=== PATIENT | male | born 1940 | race Caucasian/White ===

== ENCOUNTER 2017-03-18 22:44 | Inpatient (IN) | payer MEDICARE ==
[~2017-03-18 22:44] MED LIST: ACELLULAR PERTUSSIS VACCINE IM; ADVAIR 1001 DISK W/D; ADVAIR 2501 DISK W/D; ALBUTEROL2.5 MG/3 M NEB; ASPIR 8181 M1 PO; ASPIR-TRIN325 MG PO; DIPHTHERIA TOXOID IM; HYDROCHLOROTH12.5 M1; HYDROCHLOROTH12.5 MG; LASIX40 M1 PO; MEDROL4 M2 PO; MUCINEX1200 MG PO; OMEPRAZOLE20 MG; PROAIR; PROVENTIL17 GM; SPIRIVA18 MCG; SYMBICORT 160-1 PUFF INH; TETANUS TOXOID IM; VYTORIN 10/20 T1 TAB; ZEBETA5 M2 PO; ZEBETA5 MG; ZESTRIL10 M3 PO; ZESTRIL10 MG; ZOCOR40 M1 PO; ZOCOR40 MG; [UNRECOGNIZED DRUG - CODE] PO
[2017-03-18 23:04] LABS: ABG CO2 ARTERIAL 32 mmol/L (21-27); ARTERIAL BLD GAS O2 SATURATION 97 % (95-98); ARTERIAL BLOOD GAS PCO2 57 mmHg (32-45); ARTERIAL PO2 87 mmHg (70-100); BICARBONATE 30 mmol/L (21-28); BLOOD GAS BASE EXCESS 4 mM/L (-/+3); PH 7.34 Units (7.35-7.45)
[2017-03-18 23:20] LABS: BASO % 0.4 % (0-2); EOS % 0.9 % (0-7); EOSINOPHIL ABSOLUTE COUNT 0.1 tho/cmm (0.0-0.7); HCT-HEMATOCRIT 37.5 % (36.0-53.5); HGB-HEMOGLOBIN 11.8 gm/dl (13.5-17.0); IMMATURE GRANULOCYTES ABSOLUTE 0.04 tho/cmm (0-0.03); IMMATURE GRANULOCYTES PERCENT 0.5 % (0-0.3); LYMPH % 18.2 % (20-45); LYMPH ABSOLUTE COUNT 1.5 tho/cmm (0.8-4.5); MCHC MEAN CORPUSCULAR HGB CONC 31.5 % (32.0-36.0); MCV (MEAN CELL VOLUME) 98.4 fl (82.0-96.0); MEAN PLATELET VOLUME 10.5 cmc (9.4-12.4); MONO % 11.8 % (0-12); NEUTROPHIL ABSOLUTE COUNT 5.6 tho/cmm (1.6-8.0); NEUTROPHIL-AUTOMATED 5.6 tho/cmm (1.6-8.0); NEUTROPHILS % 68.2 % (40-80); PLATELET COUNT 156 tho/cmm (150-450); RED BLOOD COUNT 3.81 mil/cmm (4.40-5.70); RED CELL DISTRIBUTION WIDTH 14.4 % (12.4-16.4); WHITE BLOOD COUNT 8.2 tho/cmm (4.0-10.0)
[2017-03-18 23:25] LABS: PROTHROMBIN TIME 12.1 SECONDS (9.0-13.6)
[2017-03-18 23:36] LABS: ANION GAP 8 mmol/L (0-20); BLOOD UREA NITROGEN 25 mg/dl (6-24); CALCIUM 7.9 mg/dl (8.5-10.5); CARBON DIOXIDE-VENOUS 31 mmol/L (22-32); CHLORIDE 110 mmol/l (96-110); CREATININE 1.48 mg/dl (0.60-1.30); GLUCOSE 105 mg/dL (70-110); POTASSIUM 5.2 mmol/L (3.7-5.1); SODIUM 144 mmol/L (135-145); eGFR VALUE FOR BLACK 53 mL/Min
[2017-03-18] MEDS ORDERED: PRINIVIL5 M1 PO (23:43)
[2017-03-18] MEDS ORDERED: MAGNESIUM250 M2 PO (23:44)
[2017-03-18] MEDS ORDERED: NASONEX17 G1 (23:45)
[2017-03-18] MEDS ORDERED: SPIRIVA18 MC1 INH (23:45)
[2017-03-18] MEDS ORDERED: THEOPHYLLINE400 MG PO (23:45)
[2017-03-19 01:26] LABS: ALB/GLOB RATIO 0.8 (0.8-2.0); ALBUMIN 3.2 g/dl (3.5-5.0); ALKALINE PHOSPHATASE 81 U/L (33-138); ALT/SGPT 23 U/L (12-78); ANION GAP 12 mmol/L (0-20); AST/SGOT 27 U/L (10-40); BILIRUBIN,TOTAL 0.2 mg/dl (0.0-1.5); C-REACTIVE PROTEIN 1.4 mg/dl (0-0.9); CALCIUM 7.8 mg/dl (8.5-10.5); CARBON DIOXIDE-VENOUS 29 mmol/L (22-32); CHLORIDE 111 mmol/l (96-110); CREATININE 1.47 mg/dl (0.60-1.30); GLUCOSE 103 mg/dL (70-110); PHOSPHOROUS 2.9 mg/dl (2.5-4.9); POTASSIUM 5.3 mmol/L (3.7-5.1); SODIUM 147 mmol/L (135-145); THEOPHYLLINE 4.6 ug/ml (10-20); eGFR VALUE FOR BLACK 53 mL/Min
[2017-03-19 01:44] LABS: BLOOD UREA NITROGEN 24 mg/dl (6-24)
[2017-03-19 01:54] LABS: PROCALCITONIN <0.05 ng/ml (0.05-0.09)
[2017-03-19 04:26] LABS: ABG CO2 ARTERIAL 29 mmol/L (21-27); ARTERIAL BLD GAS O2 SATURATION 97 % (95-98); ARTERIAL BLOOD GAS PCO2 53 mmHg (32-45); ARTERIAL PO2 85 mmHg (70-100); BICARBONATE 27 mmol/L (21-28); BLOOD GAS BASE EXCESS 1 mM/L (-/+3); PH 7.34 Units (7.35-7.45)
[2017-03-19 06:12] LABS: BASO % 0.2 % (0-2); HCT-HEMATOCRIT 37.1 % (36.0-53.5); HGB-HEMOGLOBIN 11.4 gm/dl (13.5-17.0); IMMATURE GRANULOCYTES ABSOLUTE 0.07 tho/cmm (0-0.03); IMMATURE GRANULOCYTES PERCENT 0.8 % (0-0.3); LYMPH % 3.9 % (20-45); LYMPH ABSOLUTE COUNT 0.3 tho/cmm (0.8-4.5); MCH (MEAN CORPUSCULAR HGB) 30.2 pg (28.0-32.0); MCHC MEAN CORPUSCULAR HGB CONC 30.7 % (32.0-36.0); MCV (MEAN CELL VOLUME) 98.4 fl (82.0-96.0); MEAN PLATELET VOLUME 10.3 cmc (9.4-12.4); MONO % 1.3 % (0-12); MONOCYTE ABSOLUTE COUNT 0.1 tho/cmm (0.0-1.2); NEUTROPHIL ABSOLUTE COUNT 7.8 tho/cmm (1.6-8.0); NEUTROPHIL-AUTOMATED 7.8 tho/cmm (1.6-8.0); NEUTROPHILS % 93.8 % (40-80); PLATELET COUNT 164 tho/cmm (150-450); RED BLOOD COUNT 3.77 mil/cmm (4.40-5.70); RED CELL DISTRIBUTION WIDTH 14.3 % (12.4-16.4); WHITE BLOOD COUNT 8.3 tho/cmm (4.0-10.0)
[2017-03-19 06:22] LABS: ANION GAP 11 mmol/L (0-20); BLOOD UREA NITROGEN 24 mg/dl (6-24); CALCIUM 8.2 mg/dl (8.5-10.5); CARBON DIOXIDE-VENOUS 30 mmol/L (22-32); CHLORIDE 111 mmol/l (96-110); CREATININE 1.34 mg/dl (0.60-1.30); GLUCOSE 146 mg/dL (70-110); POTASSIUM 5.2 mmol/L (3.7-5.1); SODIUM 147 mmol/L (135-145); eGFR VALUE FOR BLACK 60 mL/Min
[2017-03-20 07:05] LABS: ANION GAP 11 mmol/L (0-20); BLOOD UREA NITROGEN 34 mg/dl (6-24); CALCIUM 8.9 mg/dl (8.5-10.5); CARBON DIOXIDE-VENOUS 30 mmol/L (22-32); CHLORIDE 106 mmol/l (96-110); CREATININE 1.37 mg/dl (0.60-1.30); GLUCOSE 125 mg/dL (70-110); POTASSIUM 4.7 mmol/L (3.7-5.1); SODIUM 142 mmol/L (135-145); eGFR VALUE FOR BLACK 58 mL/Min
[2017-03-21 03:35] LABS: URINE APPEARANCE CLEAR; URINE BILIRUBIN NEGATIVE (NEG); URINE BLOOD NEGATIVE (NEG); URINE COLOR YELLOW; URINE GLUCOSE (UA) NEGATIVE (NEG); URINE KETONE NEGATIVE (NEG); URINE LEUKOCYTE ESTERASE NEGATIVE (NEG); URINE NITRITE NEGATIVE (NEG); URINE PROTEIN NEGATIVE (NEG); URINE SPECIFIC GRAVITY 1.015 (1.003-1.030)
[2017-03-21 05:16] LABS: URINE EPITHELIAL CELLS 0 /[HPF] (0-10); URINE RBC 0 /[HPF] (0-5); URINE WBC 0 /[HPF] (0-5)
[2017-03-21 06:26] LABS: ANION GAP 10 mmol/L (0-20); BLOOD UREA NITROGEN 44 mg/dl (6-24); CALCIUM 8.9 mg/dl (8.5-10.5); CARBON DIOXIDE-VENOUS 32 mmol/L (22-32); CHLORIDE 104 mmol/l (96-110); POTASSIUM 4.2 mmol/L (3.7-5.1); SODIUM 142 mmol/L (135-145); eGFR VALUE FOR BLACK 52 mL/Min
[2017-03-21 06:32] LABS: GLUCOSE 189 mg/dL (70-110)
[2017-03-21 08:57] LABS: ABG CO2 ARTERIAL 30 mmol/L (21-27); ARTERIAL BLD GAS O2 SATURATION 98 % (95-98); ARTERIAL BLOOD GAS PCO2 54 mmHg (32-45); ARTERIAL PO2 119 mmHg (70-100); BICARBONATE 28 mmol/L (21-28); BLOOD GAS BASE EXCESS 2 mM/L (-/+3); PH 7.34 Units (7.35-7.45)
[2017-03-22 05:35] LABS: HGB-HEMOGLOBIN 11.9 gm/dl (13.5-17.0); PLATELET COUNT 191 tho/cmm (150-450)
[2017-03-22 05:51] LABS: ANION GAP 9 mmol/L (0-20); BLOOD UREA NITROGEN 46 mg/dl (6-24); CALCIUM 8.8 mg/dl (8.5-10.5); CARBON DIOXIDE-VENOUS 35 mmol/L (22-32); CHLORIDE 101 mmol/l (96-110); CREATININE 1.47 mg/dl (0.60-1.30); GLUCOSE 129 mg/dL (70-110); SODIUM 141 mmol/L (135-145); eGFR VALUE FOR BLACK 53 mL/Min
[2017-03-22] MEDS ORDERED: LEVAQUIN750 M1 PO (12:34)
[2017-03-22] MEDS ORDERED: NICODERM CQ1 EAC2 TD (12:34)
[2017-03-22] MEDS ORDERED: MUCINEX600 M1 PO (12:35)
[2017-03-22] MEDS ORDERED: BROVANA15 MCG/22 INH ×2 (16:35→16:40)
[2017-03-22] MEDS ORDERED: IPRAT-ALBUT 0.5-3 ML AERO NEB ×2 (16:36→16:37)
[2017-03-22] MEDS ORDERED: PREDNISONE10 M1 PO (16:49)
[2017-03-22] MEDS ORDERED: PULMICORT0.5 MG/22 AERO NEB (17:11)
[2017-05-16] MEDS ORDERED: MAGNESIUM OXID500 M1 PO (15:38)
[2017-05-16] MEDS ORDERED: DEMADEX20 M1 PO (15:40)
[2017-05-21] MEDS ORDERED: OXYCODONE20 MG/1 M3 PO (13:01)
[2017-05-21] MEDS ORDERED: PREDNISONE10 M1 PO (13:02)
[2017-05-22] MEDS ORDERED: LORAZEPAM I2 MG/1 ML PO (15:07)
[2017-06-18] MEDS ORDERED: ALBUTEROL2.5 MG/3 M NEB (14:57)
[2017-06-18] MEDS ORDERED: HALOPERIDOL1 M1 PO (15:00)
[2017-06-18] MEDS ORDERED: PRINIVIL5 M1 PO (15:00)
[2017-06-18] MEDS ORDERED: COMPAZINE10 MG PO (15:00)
[2017-06-18] MEDS ORDERED: NASONEX17 G1 (15:01)
[2017-06-18] MEDS ORDERED: OXYCODONE20 MG/1 M3 PO/SL (15:03)
[2017-06-18] MEDS ORDERED: THEOPHYLLINE400 MG PO (15:03)
[2017-06-18] MEDS ORDERED: PREDNISONE10 M1 PO (15:03)
[2017-06-18] MEDS ORDERED: NORCO 5-325 TA1 EACH PO (17:07)
== END 2017-03-22 17:45 | disposition home health service (06) | DRG 190 ==
LOC: EDMED 22:44 → EMR2 03-19 00:59 → CCU 03-19 02:00 → PCUA 03-19 19:41
PROVIDERS: Emergency Medicine; Family Medicine; Internal Medicine Pulmonary Disease; ADMIT Internal Medicine
DX: J44.0 Chronic obstructive pulmonary disease with (acute) lower respiratory infection (principal); J96.22 Acute and chronic respiratory failure with hypercapnia; J96.21 Acute and chronic respiratory failure with hypoxia; J18.9 Pneumonia, unspecified organism; N17.9 Acute kidney failure, unspecified; I13.0 Hypertensive heart and chronic kidney disease with heart failure and stage 1 through stage 4 chronic kidney disease, or unspecified chronic kidney disease; E87.0 Hyperosmolality and hypernatremia; I50.32 Chronic diastolic (congestive) heart failure; Z99.81 Dependence on supplemental oxygen; J44.1 Chronic obstructive pulmonary disease with (acute) exacerbation; M19.90 Unspecified osteoarthritis, unspecified site; Z95.1 Presence of aortocoronary bypass graft; Z95.0 Presence of cardiac pacemaker; F17.210 Nicotine dependence, cigarettes, uncomplicated; E78.5 Hyperlipidemia, unspecified; I25.10 Atherosclerotic heart disease of native coronary artery without angina pectoris; K21.9 Gastro-esophageal reflux disease without esophagitis; Z79.82 Long term (current) use of aspirin; I73.9 Peripheral vascular disease, unspecified; Z87.11 Personal history of peptic ulcer disease; I45.10 Unspecified right bundle-branch block; N18.3 Chronic kidney disease, stage 3 (moderate); D64.9 Anemia, unspecified
CPT/HCPCS: J1650; J1940; J1956; J2270; J2930; J7030; J7512

== ENCOUNTER 2017-04-21 16:21 | Inpatient (IN) | payer MEDICARE ==
[~2017-04-21 16:21] MED LIST changes: +BROVANA15 MCG/22 INH; +IPRAT-ALBUT 0.5-3 ML AERO NEB; +LEVAQUIN750 M1 PO; +MAGNESIUM250 M2 PO; +MUCINEX600 M1 PO; +NASONEX17 G1; +NICODERM CQ1 EAC2 TD; +PREDNISONE10 M1 PO; +PRINIVIL5 M1 PO; +PULMICORT0.5 MG/22 AERO NEB; +SPIRIVA18 MC1 INH; +THEOPHYLLINE400 MG PO
[2017-04-21 16:50] LABS: BASO % 0.1 % (0-2); HCT-HEMATOCRIT 36.6 % (36.0-53.5); HGB-HEMOGLOBIN 11.3 gm/dl (13.5-17.0); IMMATURE GRANULOCYTES ABSOLUTE 0.17 tho/cmm (0-0.03); IMMATURE GRANULOCYTES PERCENT 1.5 % (0-0.3); LYMPH % 8.4 % (20-45); LYMPH ABSOLUTE COUNT 0.9 tho/cmm (0.8-4.5); MCH (MEAN CORPUSCULAR HGB) 30.5 pg (28.0-32.0); MCHC MEAN CORPUSCULAR HGB CONC 30.9 % (32.0-36.0); MCV (MEAN CELL VOLUME) 98.7 fl (82.0-96.0); MEAN PLATELET VOLUME 10.4 cmc (9.4-12.4); MONO % 1.5 % (0-12); MONOCYTE ABSOLUTE COUNT 0.2 tho/cmm (0.0-1.2); NEUTROPHIL ABSOLUTE COUNT 9.8 tho/cmm (1.6-8.0); NEUTROPHIL-AUTOMATED 9.8 tho/cmm (1.6-8.0); NEUTROPHILS % 88.5 % (40-80); PLATELET COUNT 151 tho/cmm (150-450); RED BLOOD COUNT 3.71 mil/cmm (4.40-5.70); RED CELL DISTRIBUTION WIDTH 14.6 % (12.4-16.4); WHITE BLOOD COUNT 11.1 tho/cmm (4.0-10.0)
[2017-04-21 17:05] LABS: ANION GAP 12 mmol/L (0-20); BLOOD UREA NITROGEN 24 mg/dl (6-24); CALCIUM 9.2 mg/dl (8.5-10.5); CARBON DIOXIDE-VENOUS 30 mmol/L (22-32); CHLORIDE 110 mmol/l (96-110); GLUCOSE 121 mg/dL (70-110); POTASSIUM 4.5 mmol/L (3.7-5.1); SODIUM 147 mmol/L (135-145); eGFR VALUE FOR BLACK 85 mL/Min
[2017-04-21 17:37] LABS: ABG CO2 ARTERIAL 31 mmol/L (21-27); ARTERIAL BLD GAS O2 SATURATION 93 % (95-98); ARTERIAL BLOOD GAS PCO2 50 mmHg (32-45); ARTERIAL PO2 65 mmHg (70-100); BICARBONATE 29 mmol/L (21-28); BLOOD GAS BASE EXCESS 4 mM/L (-/+3); PH 7.39 Units (7.35-7.45)
[2017-04-22 05:33] LABS: BASO % 0.1 % (0-2); HCT-HEMATOCRIT 35.7 % (36.0-53.5); HGB-HEMOGLOBIN 11.1 gm/dl (13.5-17.0); IMMATURE GRANULOCYTES ABSOLUTE 0.16 tho/cmm (0-0.03); IMMATURE GRANULOCYTES PERCENT 1.6 % (0-0.3); LYMPH ABSOLUTE COUNT 0.4 tho/cmm (0.8-4.5); MCH (MEAN CORPUSCULAR HGB) 30.3 pg (28.0-32.0); MCHC MEAN CORPUSCULAR HGB CONC 31.1 % (32.0-36.0); MCV (MEAN CELL VOLUME) 97.5 fl (82.0-96.0); MONO % 6.1 % (0-12); MONOCYTE ABSOLUTE COUNT 0.6 tho/cmm (0.0-1.2); NEUTROPHIL ABSOLUTE COUNT 8.9 tho/cmm (1.6-8.0); NEUTROPHIL-AUTOMATED 8.9 tho/cmm (1.6-8.0); NEUTROPHILS % 88.2 % (40-80); PLATELET COUNT 153 tho/cmm (150-450); RED BLOOD COUNT 3.66 mil/cmm (4.40-5.70); RED CELL DISTRIBUTION WIDTH 14.4 % (12.4-16.4); WHITE BLOOD COUNT 10.1 tho/cmm (4.0-10.0)
[2017-04-22 05:48] LABS: ALB/GLOB RATIO 0.9 (0.8-2.0); ALKALINE PHOSPHATASE 62 U/L (33-138); ALT/SGPT 25 U/L (12-78); BILIRUBIN,TOTAL 0.2 mg/dl (0.0-1.5); BLOOD UREA NITROGEN 33 mg/dl (6-24); CARBON DIOXIDE-VENOUS 33 mmol/L (22-32); CHLORIDE 104 mmol/l (96-110); SODIUM 143 mmol/L (135-145)
[2017-04-22 05:50] LABS: ANION GAP 10 mmol/L (0-20); AST/SGOT 26 U/L (10-40); CREATININE 1.32 mg/dl (0.60-1.30); GLUCOSE 189 mg/dL (70-110); POTASSIUM 4.3 mmol/L (3.7-5.1); eGFR VALUE FOR BLACK 61 mL/Min
[2017-04-22 15:11] LABS: C-REACTIVE PROTEIN <0.3 mg/dl (0-0.9)
[2017-04-22 15:22] LABS: PROCALCITONIN 0.11 ng/ml (0.05-0.09)
[2017-04-22 15:29] LABS: THEOPHYLLINE 10.2 ug/ml (10-20)
[2017-04-22 15:32] LABS: TSH-THYROID STIMULATING HORM. 0.27 uIU/ml (0.40-3.80)
[2017-04-23 05:38] LABS: BASO % 0.1 % (0-2); HCT-HEMATOCRIT 38.4 % (36.0-53.5); HGB-HEMOGLOBIN 12.2 gm/dl (13.5-17.0); IMMATURE GRANULOCYTES ABSOLUTE 0.18 tho/cmm (0-0.03); IMMATURE GRANULOCYTES PERCENT 1.6 % (0-0.3); LYMPH % 4.1 % (20-45); LYMPH ABSOLUTE COUNT 0.5 tho/cmm (0.8-4.5); MCH (MEAN CORPUSCULAR HGB) 30.6 pg (28.0-32.0); MCHC MEAN CORPUSCULAR HGB CONC 31.8 % (32.0-36.0); MCV (MEAN CELL VOLUME) 96.2 fl (82.0-96.0); MEAN PLATELET VOLUME 10.7 cmc (9.4-12.4); MONO % 3.9 % (0-12); MONOCYTE ABSOLUTE COUNT 0.4 tho/cmm (0.0-1.2); NEUTROPHIL ABSOLUTE COUNT 10.2 tho/cmm (1.6-8.0); NEUTROPHIL-AUTOMATED 10.2 tho/cmm (1.6-8.0); NEUTROPHILS % 90.3 % (40-80); PLATELET COUNT 156 tho/cmm (150-450); RED BLOOD COUNT 3.99 mil/cmm (4.40-5.70); RED CELL DISTRIBUTION WIDTH 14.1 % (12.4-16.4); WHITE BLOOD COUNT 11.3 tho/cmm (4.0-10.0)
[2017-04-23 05:55] LABS: ANION GAP 10 mmol/L (0-20); BLOOD UREA NITROGEN 43 mg/dl (6-24); CALCIUM 9.1 mg/dl (8.5-10.5); CARBON DIOXIDE-VENOUS 35 mmol/L (22-32); CHLORIDE 101 mmol/l (96-110); CREATININE 1.27 mg/dl (0.60-1.30); GLUCOSE 126 mg/dL (70-110); MAGNESIUM 2.2 mg/dl (1.8-2.6); SODIUM 142 mmol/L (135-145); eGFR VALUE FOR BLACK 64 mL/Min
[2017-04-24 05:49] LABS: BASO % 0.2 % (0-2); HCT-HEMATOCRIT 38.8 % (36.0-53.5); HGB-HEMOGLOBIN 12.5 gm/dl (13.5-17.0); IMMATURE GRANULOCYTES ABSOLUTE 0.23 tho/cmm (0-0.03); IMMATURE GRANULOCYTES PERCENT 1.6 % (0-0.3); LYMPH % 2.5 % (20-45); LYMPH ABSOLUTE COUNT 0.4 tho/cmm (0.8-4.5); MCH (MEAN CORPUSCULAR HGB) 30.8 pg (28.0-32.0); MCHC MEAN CORPUSCULAR HGB CONC 32.2 % (32.0-36.0); MCV (MEAN CELL VOLUME) 95.6 fl (82.0-96.0); MEAN PLATELET VOLUME 11.5 cmc (9.4-12.4); MONO % 4.8 % (0-12); MONOCYTE ABSOLUTE COUNT 0.7 tho/cmm (0.0-1.2); NEUTROPHIL ABSOLUTE COUNT 13.4 tho/cmm (1.6-8.0); NEUTROPHIL-AUTOMATED 13.4 tho/cmm (1.6-8.0); NEUTROPHILS % 90.9 % (40-80); PLATELET COUNT 168 tho/cmm (150-450); RED BLOOD COUNT 4.06 mil/cmm (4.40-5.70); RED CELL DISTRIBUTION WIDTH 14.1 % (12.4-16.4); WHITE BLOOD COUNT 14.7 tho/cmm (4.0-10.0)
[2017-04-24 06:03] LABS: ANION GAP 10 mmol/L (0-20); BLOOD UREA NITROGEN 57 mg/dl (6-24); CALCIUM 9.1 mg/dl (8.5-10.5); CARBON DIOXIDE-VENOUS 37 mmol/L (22-32); CHLORIDE 96 mmol/l (96-110); CREATININE 1.31 mg/dl (0.60-1.30); GLUCOSE 148 mg/dL (70-110); POTASSIUM 4.3 mmol/L (3.7-5.1); SODIUM 139 mmol/L (135-145); eGFR VALUE FOR BLACK 61 mL/Min
[2017-04-25 06:02] LABS: BASO % 0.1 % (0-2); HCT-HEMATOCRIT 37.3 % (36.0-53.5); HGB-HEMOGLOBIN 11.9 gm/dl (13.5-17.0); IMMATURE GRANULOCYTES ABSOLUTE 0.25 tho/cmm (0-0.03); IMMATURE GRANULOCYTES PERCENT 1.7 % (0-0.3); LYMPH % 4.8 % (20-45); LYMPH ABSOLUTE COUNT 0.7 tho/cmm (0.8-4.5); MCH (MEAN CORPUSCULAR HGB) 30.2 pg (28.0-32.0); MCHC MEAN CORPUSCULAR HGB CONC 31.9 % (32.0-36.0); MCV (MEAN CELL VOLUME) 94.7 fl (82.0-96.0); MEAN PLATELET VOLUME 11.5 cmc (9.4-12.4); MONO % 3.5 % (0-12); MONOCYTE ABSOLUTE COUNT 0.5 tho/cmm (0.0-1.2); NEUTROPHIL ABSOLUTE COUNT 13.6 tho/cmm (1.6-8.0); NEUTROPHIL-AUTOMATED 13.6 tho/cmm (1.6-8.0); NEUTROPHILS % 89.9 % (40-80); PLATELET COUNT 157 tho/cmm (150-450); RED BLOOD COUNT 3.94 mil/cmm (4.40-5.70); RED CELL DISTRIBUTION WIDTH 14.2 % (12.4-16.4); WHITE BLOOD COUNT 15.1 tho/cmm (4.0-10.0)
[2017-04-25 06:14] LABS: ANION GAP 8 mmol/L (0-20); BLOOD UREA NITROGEN 71 mg/dl (6-24); CALCIUM 8.8 mg/dl (8.5-10.5); CARBON DIOXIDE-VENOUS 40 mmol/L (22-32); CHLORIDE 94 mmol/l (96-110); CREATININE 1.55 mg/dl (0.60-1.30); GLUCOSE 130 mg/dL (70-110); SODIUM 138 mmol/L (135-145); eGFR VALUE FOR BLACK 50 mL/Min
[2017-04-25] MEDS ORDERED: PREDNISONE10 M1 PO (10:10)
[2017-05-16] MEDS ORDERED: MAGNESIUM OXID500 M1 PO (15:38)
[2017-05-16] MEDS ORDERED: DEMADEX20 M1 PO (15:40)
[2017-05-21] MEDS ORDERED: OXYCODONE20 MG/1 M3 PO (13:01)
[2017-05-21] MEDS ORDERED: PREDNISONE10 M1 PO (13:02)
[2017-05-22] MEDS ORDERED: LORAZEPAM I2 MG/1 ML PO (15:07)
[2017-06-18] MEDS ORDERED: ALBUTEROL2.5 MG/3 M NEB (14:57)
[2017-06-18] MEDS ORDERED: HALOPERIDOL1 M1 PO (15:00)
[2017-06-18] MEDS ORDERED: PRINIVIL5 M1 PO (15:00)
[2017-06-18] MEDS ORDERED: COMPAZINE10 MG PO (15:00)
[2017-06-18] MEDS ORDERED: NASONEX17 G1 (15:01)
[2017-06-18] MEDS ORDERED: THEOPHYLLINE400 MG PO (15:03)
[2017-06-18] MEDS ORDERED: PREDNISONE10 M1 PO (15:03)
[2017-06-18] MEDS ORDERED: OXYCODONE20 MG/1 M3 PO/SL (15:03)
[2017-06-18] MEDS ORDERED: NORCO 5-325 TA1 EACH PO (17:07)
== END 2017-04-25 11:45 | disposition home health service (06) | DRG 291 ==
LOC: EDMED 16:21 → EMR2 19:11 → PCUA 20:28
PROVIDERS: Emergency Medicine; Internal Medicine Cardiovascular Disease; Nurse Practitioner; Nurse Practitioner Family; ADMIT Internal Medicine
DX: I13.0 Hypertensive heart and chronic kidney disease with heart failure and stage 1 through stage 4 chronic kidney disease, or unspecified chronic kidney disease (principal); J96.21 Acute and chronic respiratory failure with hypoxia; E87.0 Hyperosmolality and hypernatremia; I50.42 Chronic combined systolic (congestive) and diastolic (congestive) heart failure; J44.1 Chronic obstructive pulmonary disease with (acute) exacerbation; J96.12 Chronic respiratory failure with hypercapnia; N18.3 Chronic kidney disease, stage 3 (moderate); D72.829 Elevated white blood cell count, unspecified; E78.5 Hyperlipidemia, unspecified; I25.10 Atherosclerotic heart disease of native coronary artery without angina pectoris; Z95.1 Presence of aortocoronary bypass graft; K21.9 Gastro-esophageal reflux disease without esophagitis; M19.90 Unspecified osteoarthritis, unspecified site; K27.9 Peptic ulcer, site unspecified, unspecified as acute or chronic, without hemorrhage or perforation; Z95.0 Presence of cardiac pacemaker; D64.9 Anemia, unspecified; Z87.891 Personal history of nicotine dependence; I25.5 Ischemic cardiomyopathy; R91.1 Solitary pulmonary nodule; J43.2 Centrilobular emphysema; R73.9 Hyperglycemia, unspecified; Z79.82 Long term (current) use of aspirin; Z79.51 Long term (current) use of inhaled steroids; Z79.899 Other long term (current) drug therapy
CPT/HCPCS: J1650; J1940; J1956; J2930

== ENCOUNTER 2017-06-30 07:24 | Inpatient (IN) | payer MEDICARE ==
[~2017-06-30] VITALS: Ht 175.3 cm; Wt 74.0 kg
[~2017-06-30 07:24] MED LIST changes: +COMPAZINE10 MG PO; +DEMADEX20 M1 PO; +HALOPERIDOL1 M1 PO; +LORAZEPAM I2 MG/1 ML PO; +MAGNESIUM OXID500 M1 PO; +NORCO 5-325 TA1 EACH PO; +OXYCODONE20 MG/1 M3 PO; +OXYCODONE20 MG/1 M3 PO/SL
[2017-06-30 08:15] LABS: BASO % 0.2 % (0-2); EOS % 0.1 % (0-7); HGB-HEMOGLOBIN 10.6 gm/dl (13.5-17.0); IMMATURE GRANULOCYTES PERCENT 1.6 % (0-0.3); LYMPH % 5.8 % (20-45); LYMPH ABSOLUTE COUNT 0.7 tho/cmm (0.8-4.5); MCHC MEAN CORPUSCULAR HGB CONC 32.1 % (32.0-36.0); MCV (MEAN CELL VOLUME) 96.5 fl (82.0-96.0); MEAN PLATELET VOLUME 10.5 cmc (9.4-12.4); MONO % 9.3 % (0-12); MONOCYTE ABSOLUTE COUNT 1.2 tho/cmm (0.0-1.2); NEUTROPHIL ABSOLUTE COUNT 10.4 tho/cmm (1.6-8.0); NEUTROPHIL-AUTOMATED 10.4 tho/cmm (1.6-8.0); PLATELET COUNT 245 tho/cmm (150-450); RED BLOOD COUNT 3.42 mil/cmm (4.40-5.70); RED CELL DISTRIBUTION WIDTH 15.8 % (12.4-16.4); WHITE BLOOD COUNT 12.5 tho/cmm (4.0-10.0)
[2017-06-30 08:29] LABS: ANION GAP 14 mmol/L (0-20); BLOOD UREA NITROGEN 127 mg/dl (6-24); CALCIUM 10.1 mg/dl (8.5-10.5); CARBON DIOXIDE-VENOUS 34 mmol/L (22-32); CHLORIDE 90 mmol/l (96-110); CREATININE 3.84 mg/dl (0.60-1.30); GLUCOSE 96 mg/dL (70-110); SODIUM 132 mmol/L (135-145); eGFR VALUE FOR BLACK 17 mL/Min
[2017-06-30 08:44] LABS: POTASSIUM 6.2 mmol/L (3.7-5.1)
[2017-06-30 09:29] LABS: PROCALCITONIN 0.73 ng/ml (0.05-0.09)
[2017-06-30 16:35] LABS: URINE BILIRUBIN NEGATIVE (NEG); URINE BLOOD NEGATIVE (NEG); URINE GLUCOSE (UA) NEGATIVE (NEG); URINE KETONE NEGATIVE (NEG); URINE LEUKOCYTE ESTERASE NEGATIVE (NEG); URINE NITRITE NEGATIVE (NEG); URINE PROTEIN NEGATIVE (NEG); URINE SPECIFIC GRAVITY 1.015 (1.003-1.030)
[2017-06-30 16:36] LABS: URINE APPEARANCE CLEAR; URINE COLOR YELLOW
[2017-06-30 18:27] LABS: ALBUMIN 2.7 g/dl (3.5-5.0); ANION GAP 12 mmol/L (0-20); BLOOD UREA NITROGEN 112 mg/dl (6-24); CALCIUM 9.3 mg/dl (8.5-10.5); CARBON DIOXIDE-VENOUS 32 mmol/L (22-32); CHLORIDE 97 mmol/l (96-110); CREATININE 2.88 mg/dl (0.60-1.30); GLUCOSE 86 mg/dL (70-110); MAGNESIUM 3.7 mg/dl (1.8-2.6); PHOSPHOROUS 5.3 mg/dl (2.5-4.9); POTASSIUM 5.9 mmol/L (3.7-5.1); SODIUM 135 mmol/L (135-145); eGFR VALUE FOR BLACK 23 mL/Min
[2017-06-30 20:32] LABS: URINE CREATININE-RANDOM 102 mg/dl (30-125); URINE SODIUM-RANDOM 26 mmol/L (20-110)
[2017-07-01 04:59] LABS: ALB/GLOB RATIO 0.6 (0.8-2.0); ALBUMIN 2.9 g/dl (3.5-5.0); ALKALINE PHOSPHATASE 82 U/L (33-138); ALT/SGPT 19 U/L (12-78); BILIRUBIN,TOTAL 0.5 mg/dl (0.0-1.5); BLOOD UREA NITROGEN 103 mg/dl (6-24); CALCIUM 9.4 mg/dl (8.5-10.5); CARBON DIOXIDE-VENOUS 31 mmol/L (22-32); CHLORIDE 98 mmol/l (96-110); CREATININE 2.31 mg/dl (0.60-1.30); SODIUM 137 mmol/L (135-145); eGFR VALUE FOR BLACK 31 mL/Min
[2017-07-01 05:04] LABS: ANION GAP 14 mmol/L (0-20); AST/SGOT 26 U/L (10-40); GLUCOSE 157 mg/dL (70-110)
[2017-07-01 05:08] LABS: POTASSIUM 6.3 mmol/L (3.7-5.1)
[2017-07-01 05:27] LABS: BASO % 0.2 % (0-2); HCT-HEMATOCRIT 31.6 % (36.0-53.5); HGB-HEMOGLOBIN 10.1 gm/dl (13.5-17.0); IMMATURE GRANULOCYTES ABSOLUTE 0.19 tho/cmm (0-0.03); LYMPH % 2.8 % (20-45); LYMPH ABSOLUTE COUNT 0.3 tho/cmm (0.8-4.5); MCH (MEAN CORPUSCULAR HGB) 31.2 pg (28.0-32.0); MCV (MEAN CELL VOLUME) 97.5 fl (82.0-96.0); MEAN PLATELET VOLUME 10.6 cmc (9.4-12.4); MONOCYTE ABSOLUTE COUNT 0.1 tho/cmm (0.0-1.2); PLATELET COUNT 260 tho/cmm (150-450); RED BLOOD COUNT 3.24 mil/cmm (4.40-5.70); RED CELL DISTRIBUTION WIDTH 15.9 % (12.4-16.4); WHITE BLOOD COUNT 9.6 tho/cmm (4.0-10.0)
[2017-07-02] MEDS ORDERED: ZOCOR40 M1 PO (11:01)
[2017-07-02] MEDS ORDERED: Roxanol (13:23)
[2017-07-02] MEDS ORDERED: ATROPINE SULFATE2 M1 SL (14:32)
[2017-07-02] MEDS ORDERED: MORPHINE S20 MG/1 M1 SL (14:34)
[2017-07-02] MEDS ORDERED: TYLENOL325 M2 PO (14:35)
[2017-07-02] MEDS ORDERED: LORAZEPAM I2 MG/1 ML SL (14:46)
== END 2017-07-02 15:35 | disposition hospice, home (50) | DRG 683 ==
LOC: EDMED → EDBD 07:24 → EMR2 11:19 → CCU 11:19 → 5WE 11:19 → CCU 15:15 → 5WE 07-01 17:27
PROVIDERS: Emergency Medicine; Internal Medicine; Internal Medicine Nephrology; ADMIT Hospitalist
PROC: B54NZZA Ultrasonography of Left Upper Extremity Veins, Guidance (ICD-10-PCS; 2017-06-29)
PROC: 05HA33Z Insertion of Infusion Device into Left Brachial Vein, Percutaneous Approach (ICD-10-PCS; principal; 2017-06-30)
DX: N17.9 Acute kidney failure, unspecified (principal); I50.32 Chronic diastolic (congestive) heart failure; J96.11 Chronic respiratory failure with hypoxia; I13.0 Hypertensive heart and chronic kidney disease with heart failure and stage 1 through stage 4 chronic kidney disease, or unspecified chronic kidney disease; E11.22 Type 2 diabetes mellitus with diabetic chronic kidney disease; E87.1 Hypo-osmolality and hyponatremia; Z66 Do not resuscitate; J44.9 Chronic obstructive pulmonary disease, unspecified; D64.9 Anemia, unspecified; G47.33 Obstructive sleep apnea (adult) (pediatric); K27.9 Peptic ulcer, site unspecified, unspecified as acute or chronic, without hemorrhage or perforation; I25.10 Atherosclerotic heart disease of native coronary artery without angina pectoris; Z95.0 Presence of cardiac pacemaker; E87.5 Hyperkalemia; E11.65 Type 2 diabetes mellitus with hyperglycemia; N18.3 Chronic kidney disease, stage 3 (moderate); E83.41 Hypermagnesemia; Z51.5 Encounter for palliative care; R54 Age-related physical debility; Z87.891 Personal history of nicotine dependence; K21.9 Gastro-esophageal reflux disease without esophagitis
CPT/HCPCS: C1751; J1630; J1815; J1940; J2930; J7030